=== PATIENT | male | born 1980 | race African-American/Black ===

== ENCOUNTER 2017-09-21 10:21 | Emergency (ER) | payer OTHER ==
[~2017-09-21 10:21] MED LIST: Sodium Chloride 0.9% 1,000 ML BAG ONE
[2017-09-21] MEDS ORDERED: Iopamidol 370 76% 100 ML VIAL ONE (10:30)
[2017-09-21] MEDS ORDERED: Ondansetron ODT 4 MG TAB ONE (11:00)
[2017-09-21] MEDS ORDERED: Morphine 10 MG/ML VIAL ONE (11:00)
[2017-09-21 11:03] LABS: Band 1 % (5-11); Eosinophils 2 % (0-10); Hemoglobin 13.9 g/dL (14.0-18.0); Lymphocytes 18 % (21-51); MDiff Complete? YES; Mean Corpuscular HGB CONC 34.6 g/dL (32.0-36.0); Mean Corpuscular Volume 86.5 fL (78.0-98.0); Mean Platelet Volume 7.6 fL (7.4-10.4); Monocytes 3 % (0-10); Neutrophil 76 % (42-75); Platelet Count 247 thou/uL (130-400); RBC Distribution Width 11.2 % (11.5-14.5); Red Blood Cell (RBC) Count 4.64 mill/uL (4.70-6.10); White Blood Cell (WBC) Count 9.6 thou/uL (4.8-10.8)
[2017-09-21 11:05] LABS: INR-International Normal Ratio 1.2; PTT 25.7 SEC (22.9-36.1); Prothrombin Time 14.9 SEC (12.0-14.7)
[2017-09-21 11:13] LABS: ALT (SGPT) 15 U/L (8-55); AST (SGOT) 26 U/L (5-34); Albumin 4.3 g/dL (3.5-5.0); Alkaline Phosphatase 44 U/L (40-150); Anion Gap 16 mmol/L (10-20); BUN (Urea Nitrogen) 13 mg/dL (8.9-20.6); Bilirubin, Total 0.7 mg/dL (0.2-1.2); Calc. Creatinine Clearance 0 mL/min (70-130); Calcium 9.4 mg/dL (7.8-10.44); Carbon Dioxide 22 mmol/L (22-29); Chloride 102 mmol/L (98-107); Estimated GFR-MDRD Greater than 90; Globulin 2.9 g/dL (2.4-3.5); Glucose 95 mg/dL (70-105); Potassium 4.3 mmol/L (3.5-5.1); Protein, Total 7.2 g/dL (6.0-8.3); Sodium 136 mmol/L (136-145)
--- NOTE | 2017-09-21 12:51 | RAD ---
RIGHT ANKLE 3 VIEWS: Date: 09/21/17 HISTORY: Right ankle pain. Fall. Ankle injury. FINDINGS: Oblique fracture at the base of the medial malleolus is present with 0.2 cm distraction and minimal m edial displacement. Ankle mortise is intact. Oblique fracture of the lateral malleolus at the level o f the ankle mortise is present with less than 1/4 shaft width posterior and lateral displacement. Pos terior malleolus is intact. Mild degenerative changes of the hindfoot. IMPRESSION: Mildly displaced bimalleolar fracture right ankle. POS: [facility]
--- NOTE | 2017-09-21 13:01 | RAD ---
4 VIEWS RIGHT FORELEG: Date: 09/21/17 INDICATION: Tripped and fell on water heater with lesia, falling on back. COMPARISON: Right ankle radiograph performed separately. FINDINGS: There is a bimalleolar ankle fracture that is better detailed in separate right ankle radiographic se max. No additional fracture is evident involving the foreleg. There is soft tissue swelling surround ing the right ankle. IMPRESSION: Bimalleolar ankle fracture. POS: [facility]
--- NOTE | 2017-09-21 13:27 | CT ---
CT CHEST WITH IV CONTRAST CT ABDOMEN AND PELVIS WITH IV CONTRAST CT THORACIC SPINE NONCONTRAST CT LUMBAR SPINE NONCONTRAST: Date: 09/21/17 HISTORY: Crush injury. Fall. FINDINGS: No evidence of pneumothorax or mediastinal hematoma. Lobular low density lesions within the liver dem onstrate peripheral nodular enhancement and are consistent with hemangiomas. No free fluid. The splee n, kidneys, adrenal glands, and pancreas are unremarkable. Vertebral body height and alignment of the thoracolumbar spine are intact. Mildly displaced fractures involve the left transverse processes of L2, L3, and L4. IMPRESSION: Mid lumbar left transverse process fractures. No unstable injury is apparent. No other acute traumati c injury is demonstrated. POS: [facility]
[2017-09-21 14:13] LABS: CKMB 2.5 ng/mL (0-6.6); Troponin I Less than 0.010 ng/mL (< 0.028)
[2017-09-21 15:37] LABS: Bilirubin Negative (Negative); Blood, Urine Negative (Negative); Clarity Clear (Clear); Glucose, Urine (Dipstick) Negative (Negative); Leukocyte Negative (Negative); Nitrite Negative (Negative); Protein, Urine (Dipstick) Negative (Neg-Trace); pH, Urine 5.5 (5.0-9.0)
[2017-09-21 15:46] LABS: Bacteria/HPF None Seen HPF (None Seen); Other Microscopic Description C&S SET UP; RBC/HPF None Seen HPF (0-3); Squamous Epithelial 0-3 HPF (0-3); WBC/HPF None Seen HPF (0-3)
== END 2017-09-21 15:40 | disposition short-term general hospital (02) ==
LOC: MADERS 10:21
DX: S82.841A Displaced bimalleolar fracture of right lower leg, initial encounter for closed fracture (principal); S82.61XA Displaced fracture of lateral malleolus of right fibula, initial encounter for closed fracture; F17.210 Nicotine dependence, cigarettes, uncomplicated; W20.8XXA Other cause of strike by thrown, projected or falling object, initial encounter
CPT/HCPCS: 36415; 71260; 74177; 80053; 81001; 82553; 83880; 84484; 85025; 85610; 85730; 87086; 93005; 96361; 96374; J2270; J7050; Q0162

== ENCOUNTER 2017-09-23 07:43 | Emergency (ER) | payer OTHER, SELFPAY ==
[2017-09-23] MEDS ORDERED: Morphine 4 MG/ML VIAL ONE (08:00)
[2017-09-23] MEDS ORDERED: Ketorolac Tromethamine 60 MG/2 ML VIAL ONE (08:00)
== END 2017-09-23 08:20 | disposition home or self-care (01) ==
LOC: MADERS 07:43
DX: G89.18 Other acute postprocedural pain (principal)
CPT/HCPCS: 96372; J1885; J2270

== ENCOUNTER 2021-10-05 04:57 | Emergency (ER) | payer SELFPAY ==
[2021-10-05] MEDS ORDERED: predniSONE 20 MG TAB ONE (05:58)
== END 2021-10-05 05:49 | disposition home or self-care (01) ==
LOC: MADERS 04:57
DX: G56.01 Carpal tunnel syndrome, right upper limb (principal); F17.210 Nicotine dependence, cigarettes, uncomplicated
CPT/HCPCS: 99283; J7512

== ENCOUNTER 2023-12-06 03:39 | Emergency (ER) | payer SELFPAY | END 2023-12-06 04:35 | disposition home or self-care (01) | LOC: MADERS 03:39 | DX: S43.101A Unspecified dislocation of right acromioclavicular joint, initial encounter (principal); F17.210 Nicotine dependence, cigarettes, uncomplicated; X50.0XXA Overexertion from strenuous movement or load, initial encounter | CPT/HCPCS: 99283 ==